=== PATIENT | female | born 1955 | race Two or more races ===

== ENCOUNTER 2023-10-28 21:36 | Emergency (ER) | payer MEDICARE, OTHER ==
--- NOTE | 2023-10-28 23:54 | ED Physician Documentation ---
PD HPI DYSPNEA - Stated complaint Stated Complaint: SOA/COUGH - Chief complaint Chief Complaint: Resp - History obtained from History obtained from: Patient - Additional information Additional information: HPI from patient. Patient is visiting [facility] from [place]. She saw her PCP 3 days ago before leaving [place] and was prescribed albuterol MDI, flonase, and benzonatate. She saw PCP for cough, dyspnea, and wheezing x few days. Denies fever. She says the cough is moist but nonproductive. She presents at this time to ED due to gradually worsening symptoms. Denies chest pain, denies leg swelling, denies hemoptysis. PD PAST MEDICAL HISTORY - Past Medical History Past Medical History: Yes Cardiovascular: Hypertension, High cholesterol Endocrine/Autoimmune: Type 2 diabetes Musculoskeletal: Gout - Past Surgical History Past Surgical History: Yes Ortho: Knee replacement - Present Medications Home Medications: Ambulatory Orders Medication Instructions Recorded Confirmed Azithromycin [Zithromax] 250 mg PO DAILY #4 tablet 10/29/23 predniSONE [Deltasone] 40 mg PO DAILY 3 Days #6 tablet 10/29/23 - Allergies Allergies/Adverse Reactions: Allergies Allergy/AdvReac Type Severity Reaction Status Date / Time amlodipine Allergy Rash Verified 10/28/23 21:41 - Social History Does the pt smoke?: Yes Smoking Status: Current every day smoker Does the pt drink ETOH?: No Does the pt have substance abuse?: No - Immunizations Immunizations are current?: Yes PD ED PE NORMAL - Vitals Vital signs reviewed: Yes - General General: Alert and oriented X 3, No acute distress, Well developed/nourished - Cardiac Cardiac: RRR, No murmur - Respiratory Respiratory: No respiratory distress PD ED PE EXPANDED - Respiratory Respiratory: Wheezing (end-expiratory bilateral wheezing) Results - Vitals Vitals: Oxygen O2 Source Room air - Labs Labs: Laboratory Tests 10/29/23 00:20 Nasal Adenovirus (PCR) NOT DETECTED Nasal B. parapertussis DNA (PCR) NOT DETECTED Nasal Coronavir 229E PCR NOT DETECTED Nasal Coronavir HKU1 PCR NOT DETECTED Nasal Coronavir NL63 PCR NOT DETECTED Nasal Coronavir OC43 PCR NOT DETECTED Nasal Enterovir/Rhinovir PCR NOT DETECTED Nasal Influenza B PCR NOT DETECTED Nasal Influenza A PCR NOT DETECTED Nasal Parainfluen 1 PCR NOT DETECTED Nasal Parainfluen 2 PCR NOT DETECTED Nasal Parainfluen 3 PCR NOT DETECTED Nasal Parainfluen 4 PCR NOT DETECTED Nasal RSV (PCR) NOT DETECTED Nasal B.pertussis DNA PCR NOT DETECTED Nasal C.pneumoniae (PCR) DETECTED A Higinio Human Metapneumo PCR NOT DETECTED Nasal M.pneumoniae (PCR) NOT DETECTED Nasal SARS-CoV-2 (PCR) NOT DETECTED - Rads (name of study) chest xray Relevant Findings:: Prelim report reviewed, See rad report PD Medical Decision Making - ED course Complexity details: reviewed results, re-evaluated patient, considered differential, d/w patient ED course: Normal CXR. Given duoneb and 40mg prednisone. After duoneb, lungs are CTA bilaterally on reexamination and patient reports feeling much better. Respiratory PCR panel positive for chlamydia pneumoniae for which she is given 500mg po zithromax. Results reviewed with patient along with diagnosis, prognosis, expected course of illness, and return precautions. She is provided prescriptions for prednisone and azithromycin. Departure - Departure Disposition: 01 Home, Self Care Clinical Impression: Bronchitis Condition: Good Instructions: ED Upper Resp Infec Abx Tx Prescriptions: predniSONE [Deltasone] 40 mg PO DAILY 3 Days #6 tablet Azithromycin [Zithromax] 250 mg PO DAILY #4 tablet Comments: Your chest x-ray was normal; there is no evidence of pneumonia. The nasal swab did test positive for an infection that should respond well to antibiotics. For this, you were given the first dose of the antibiotic (azithromycin) in the emergency department, and have electronically submitted a prescription for 4 more days of this antibiotic to the [facility] in [place]. Additionally, you were given a dose of steroid (prednisone) in the emergency department, and I have submitted a prescription for this medication to be taken once a day for the next 3 days, as well. The prednisone has a strong anti- inflammatory effect, which should help you breathe more easily with less wheezing and coughing. Discharge Date/Time: 10/29/23 02:28
[2023-10-29] MEDS: IPRATROPIUM/ALBUTEROL 3 ML NEB INH STA (00:46)
--- NOTE | 2023-10-29 01:06 | XRAY Report ---
PROCEDURE: Chest 2V INDICATIONS: cough, dyspnea TECHNIQUE: 2 views of the chest were acquired. COMPARISON: None. FINDINGS: Surgical changes and devices: None. Lungs and pleura: No pleural effusions or pneumothorax. Lungs are clear. Mediastinum: Mediastinal contours appear normal. Heart size is normal. Bones and chest wall: No suspicious bony lesions. Overlying soft tissues appear unremarkable. IMPRESSION: No acute cardiopulmonary process. Reviewed by: Francisco Sneed MD on 10/29/2023 1:05 AM PDT Approved by: Francisco Sneed MD on 10/29/2023 1:05 AM PDT Station ID: [id number]
[2023-10-29 01:23] LABS: B. PARAPERTUSSIS- RESP PCR PAN NOT DETECTED; B. PERTUSSIS- RESP PCR PANEL NOT DETECTED; C. PNEUMONIAE- RESP PCR PANEL DETECTED; CORONAVIRUS 229E-RESP PCR NOT DETECTED; CORONAVIRUS HKU1-RESP PCR NOT DETECTED; CORONAVIRUS NL63-RESP PCR NOT DETECTED; CORONAVIRUS OC43-RESP PCR NOT DETECTED; HUMAN METAPNEUMOVIRUS NOT DETECTED; INFLUENZA A- RESP PCR PANEL NOT DETECTED; INFLUENZA B - RESP PCR PANEL NOT DETECTED; M. PNEUMONIAE- RESP PCR PANEL NOT DETECTED; PARAINFLUENZA VIRUS 1 NOT DETECTED; PARAINFLUENZA VIRUS 2 NOT DETECTED; PARAINFLUENZA VIRUS 3 NOT DETECTED; PARAINFLUENZA VIRUS 4 NOT DETECTED; RHINOVIRUS/ENTEROVIRUS NOT DETECTED; RSV- RESP PCR PANEL NOT DETECTED; SARS-CoV-2 -RESP PCR PANEL NOT DETECTED
[2023-10-29 02:11] VITALS: BP 163/81; O2SAT 97
[2023-10-29] MEDS: AZITHROMYCIN 250 MG TABLET PO STA (02:20)
[2023-10-29] MEDS: predniSONE 20 MG TABLET PO STA (02:20)
== END 2023-10-29 02:28 | disposition home or self-care (01) ==
LOC: ED 21:36
DX: J40 Bronchitis, not specified as acute or chronic (principal); I10 Essential (primary) hypertension; E78.00 Pure hypercholesterolemia, unspecified; E11.9 Type 2 diabetes mellitus without complications; M10.9 Gout, unspecified; F17.200 Nicotine dependence, unspecified, uncomplicated
CPT/HCPCS: 71046; 87633; 94640; 99283; 99284; A9270; J7512